=== PATIENT | female | born 2000 | race Caucasian/White ===

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

== ENCOUNTER 2021-08-24 17:55 | Emergency (ER) | payer BC ==
[2021-08-24 18:04] VITALS: BP 113/80; PULSE 83; RESP 20; TEMP 98.7
[2021-08-24] MEDS ORDERED: ONDANSETRON 4 MG/2 ML VIAL IVP STA ×2 (20:26→22:29)
[2021-08-24] MEDS ORDERED: SODIUM CHLORIDE 0.9% 2,000 ML IV STA (20:26)
[2021-08-24] MEDS ORDERED: FAMOTIDINE 20 MG/2 ML VIAL IV STA (20:28)
--- NOTE | 2021-08-24 20:29 | ED ---
General Adult HPI - General Chief complaint: Nausea/Vomiting/Diarrhea Stated complaint: Nausea/Vomiting/12 wks preg Time Seen by Provider: 08/24/21 20:17 Source: patient, RN notes reviewed Mode of arrival: ambulatory Limitations: no limitations - History of Present Illness Initial comments: Patient is a pleasant 21-year-old female presenting to the emergency Department with nausea vomiting. Patient is 12 weeks gravid. Symptoms been present most worse the last 2 days. Patient is vomiting more than 5 or 6 times last couple of days. No abdominal or pelvic pain. No vaginal bleeding. No constipation or diarrhea. - Related Data Previous Rx's Medication Instructions Recorded Sulfamethox-Tmp 800-160Mg [Bactrim 1 each PO Q12HR #14 tab 10/15/18 DS 800-160 mg] Ondansetron Odt [Zofran Odt] 4 mg PO Q8HR PRN #10 tab 04/04/19 Allergies Allergy/AdvReac Type Severity Reaction Status Date / Time No Known Allergies Allergy Verified 08/24/21 18:04 Review of Systems ROS Statement: Those systems with pertinent positive or pertinent negative responses have been documented in the HPI. ROS Other: All systems not noted in ROS Statement are negative. Constitutional: Denies: fever Eyes: Denies: eye pain ENT: Denies: ear pain Respiratory: Denies: cough Cardiovascular: Denies: chest pain Endocrine: Denies: fatigue Gastrointestinal: Reports: nausea, vomiting. Denies: abdominal pain, diarrhea Genitourinary: Denies: dysuria Musculoskeletal: Denies: back pain Skin: Denies: rash Neurological: Denies: weakness Past Medical History Past Medical History: No Reported History Additional Past Medical History / Comment(s): Frequent UTI's History of Any Multi-Drug Resistant Organisms: None Reported Past Surgical History: No Surgical Hx Reported Past Psychological History: No Psychological Hx Reported Smoking Status: Never smoker Past Alcohol Use History: None Reported Past Drug Use History: None Reported General Exam Limitations: no limitations General appearance: alert, in no apparent distress Head exam: Present: normocephalic Eye exam: Present: normal appearance Neck exam: Present: normal inspection Respiratory exam: Present: normal lung sounds bilaterally Cardiovascular Exam: Present: regular rate, normal rhythm GI/Abdominal exam: Present: soft. Absent: distended, tenderness, guarding, rebound, rigid Extremities exam: Present: normal inspection Neurological exam: Present: alert Psychiatric exam: Present: normal affect, normal mood Skin exam: Present: normal color Course Vital Signs 08/24/21 18:02 Temperature 98.7 F Pulse Rate 83 Respiratory 20 Rate Blood Pressure 113/80 O2 Sat by Pulse 99 Oximetry Medical Decision Making - Medical Decision Making Patient reevaluated and resting comfortably in bed. Patient is much better. Patient updated on results and need for follow-up. - Lab Data Result diagrams: 08/24/21 20:56 08/24/21 20:56 Lab Results 08/24/21 08/24/21 08/24/21 Range/Units 20:56 20:56 20:56 WBC 19.2 H (4.0-11.0) k/uL RBC 4.54 (3.80-5.40) m/uL Hgb 13.6 (11.4-16.0) gm/dL Hct 40.3 (34.0-46.0) % MCV 88.8 (80.0-100.0) fL MCH 30.0 (25.0-35.0) pg MCHC 33.8 (31.0-37.0) g/dL RDW 14.2 (11.5-15.5) % Plt Count 287 (150-450) k/uL MPV 7.7 Neutrophils % 91 % Lymphocytes % 6 % Monocytes % 2 % Eosinophils % 1 % Basophils % 0 % Neutrophils # 17.4 H (1.3-7.7) k/uL Lymphocytes # 1.1 (1.0-4.8) k/uL Monocytes # 0.5 (0-1.0) k/uL Eosinophils # 0.2 (0-0.7) k/uL Basophils # 0.0 (0-0.2) k/uL Sodium 138 (137-145) mmol/L Potassium 3.2 L (3.5-5.1) mmol/L Chloride 97 L (98-107) mmol/L Carbon Dioxide 27 (22-30) mmol/L Anion Gap 14 mmol/L BUN 7 (7-17) mg/dL Creatinine 0.35 L (0.52-1.04) mg/dL Est GFR (CKD-EPI)AfAm >90 (>60 ml/min/1.73 sqM) Est GFR (CKD-EPI)NonAf >90 (>60 ml/min/1.73 sqM) Glucose 129 H (74-99) mg/dL Calcium 10.2 (8.4-10.2) mg/dL Total Bilirubin 0.6 (0.2-1.3) mg/dL AST 19 (14-36) U/L ALT 14 (4-34) U/L Alkaline Phosphatase 56 (38-126) U/L Total Protein 8.4 H (6.3-8.2) g/dL Albumin 4.8 (3.5-5.0) g/dL Amylase 71 (30-110) U/L Lipase 50 (23-300) U/L HCG, Quant 29860.9 mIU/mL Urine Color Yellow Urine Appearance Cloudy H (Clear) Urine pH 6.0 (5.0-8.0) Ur Specific [place] 1.033 (1.001-1.035) Urine Protein 2+ H (Negative) Urine Glucose (UA) Trace H (Negative) Urine Ketones 4+ H (Negative) Urine Blood Negative (Negative) Urine Nitrite Negative (Negative) Urine Bilirubin Negative (Negative) Urine Urobilinogen 3.0 (<2.0) mg/dL Ur Leukocyte Esterase Small H (Negative) Urine RBC 3 (0-5) /hpf Urine WBC 6 H (0-5) /hpf Ur Squamous Epith Cells 6 H (0-4) /hpf Urine Bacteria Occasional H (None) /hpf Hyaline Casts 3 H (0-2) /lpf Urine Mucus Many H (None) /hpf Disposition Clinical Impression: Hyperemesis gravidarum Disposition: HOME SELF-CARE Condition: Stable Instructions (If sedation given, give patient instructions): Acute Nausea and Vomiting (ED) Additional Instructions: Please do follow-up with your [employer] in the next day or 2 for recheck. Return for uncontrolled vomiting, fever, pain, bleeding, worsening or change in symptoms or other concerns. Is patient prescribed a controlled substance at d/c from ED?: No Referrals: Savana Walsh MD [STAFF PHYSICIAN] - 1-2 days Time of Disposition: 22:04
[2021-08-24 21:06] LABS: Basophils % (A) 0 %; Eosinophils # (A) 0.2 k/uL (0-0.7); Eosinophils % (A) 1 %; HCT 40.3 % (34.0-46.0); HGB 13.6 gm/dL (11.4-16.0); Lymphocytes # (A) 1.1 k/uL (1.0-4.8); Lymphocytes % (A) 6 %; MCHC 33.8 g/dL (31.0-37.0); MCV 88.8 fL (80.0-100.0); Mean Platelet Volume 7.7; Monocytes # (A) 0.5 k/uL (0-1.0); Monocytes % (A) 2 %; Neutrophils # (A) 17.4 k/uL (1.3-7.7); Neutrophils % (A) 91 %; Platelet Count 287 k/uL (150-450); RBC 4.54 m/uL (3.80-5.40); RDW 14.2 % (11.5-15.5); WBC 19.2 k/uL (4.0-11.0)
[2021-08-24 21:11] LABS: Appearance,Urine Cloudy (Clear); Bacteria,Urine Occasional /hpf; Bilirubin,Urine Negative (Negative); Blood,Urine Negative (Negative); Color,Urine Yellow; Glucose,Urine (UA) Trace (Negative); Hyaline Casts,Urine 3 /lpf (0-2); Ketones,Urine 4+ (Negative); Leukocyte Esterase,Urine Small (Negative); Mucus,Urine Many /hpf; Nitrite,Urine Negative (Negative); Protein,Urine 2+ (Negative); RBC,Urine 3 /hpf (0-5); Specific Gravity,Urine 1.033 (1.001-1.035); Squamous Epithelial Cell,Urine 6 /hpf (0-4); WBC,Urine 6 /hpf (0-5)
[2021-08-24 21:15] LABS: ALT 14 U/L (4-34); AST 19 U/L (14-36); African American GFR (CKD) >90 (>60 ml/min/1.73 sqM); Albumin 4.8 g/dL (3.5-5.0); Alkaline Phosphatase 56 U/L (38-126); Amylase 71 U/L (30-110); Anion Gap 14 mmol/L; Blood Urea Nitrogen 7 mg/dL (7-17); Calcium 10.2 mg/dL (8.4-10.2); Carbon Dioxide 27 mmol/L (22-30); Chloride 97 mmol/L (98-107); Glucose 129 mg/dL (74-99); Lipase 50 U/L (23-300); Non-African American GFR(CKD) >90 (>60 ml/min/1.73 sqM); Potassium 3.2 mmol/L (3.5-5.1); Sodium 138 mmol/L (137-145); Total Bilirubin 0.6 mg/dL (0.2-1.3); Total Protein 8.4 g/dL (6.3-8.2)
[2021-08-24 21:31] LABS: HCG,Quantitative Serum 14035.9 mIU/mL
[2021-08-24] MEDS ORDERED: POTASSIUM CHLORIDE ER 20 MEQ TAB.ER PO STA (22:04)
[2021-08-24] MEDS ORDERED: ONDANSETRON 4 MG ODT STARTER PACK 2 TAB BTL PO STA (22:28)
== END 2021-08-24 22:42 | disposition home or self-care (01) ==
LOC: EC 17:55
DX: O21.0 Mild hyperemesis gravidarum (principal); Z3A.12 12 weeks gestation of pregnancy
CPT/HCPCS: 36415; 80053; 82150; 83690; 85025; 81001; 84702; 96374; 96375; 96361; 99284; J2405; S0119

== ENCOUNTER 2021-12-10 17:23 | Outpatient (CLI) | payer BC ==
--- NOTE | 2021-12-10 20:20 | US ---
EXAMINATION TYPE: US OB limited DATE OF EXAM: 12/10/2021 COMPARISON: NONE CLINICAL HISTORY: 29 weeks, ? srom, cramping. Patient states she has been leaking since last night. EXAM PERFORMED: Transabdominal (TA) GARRY only per ordering physician GESTATIONAL AGE / DATING Physician Established: (28 weeks/6 days) EDC: 05/22/21 No growth performed on today?s study per ordering physician SURVEY GARRY: 16.3 cm Normal Ultrasound evidence of premature rupture of membranes? No HEART RATE: 143 bpm RHYTHM: Normal IMPRESSION: No acute process.
[2021-12-10 20:55] VITALS: BP 111/58; PULSE 83; RESP 16; TEMP 97.3
--- NOTE | 2021-12-11 08:34 | P.MSEPDOC ---
Presenting Problems - Arrival Data Date of Arrival on Unit: 12/10/21 Time of Arrival on Unit: 20:45 Mode of Transport: Wheelchair - Complaint OB-Reason for Admission/Chief Complaint: Rule Out PROM Comment: possible leaking since last night Medical History - Information : 1 Para: 0 Term: 0 : 0 Abortions: Spontaneous or Elective: 0 Number of Living Children: 0 - Gestational Age Gestational Age by URIAH (wks/days): 28 Weeks and 6 Days - History Comment: 2VC Review of Systems - Review of Systems Constitutional: No problems Breast: No problems ENT: No problems Cardiovascular: No problems Respiratory: No problems Gastrointestinal: No problems Genitourinary: No problems Musculoskeletal: Muscle weakness Neurological: No problems Skin: No problems Comment: pt has guillian barre syndrome, 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 Vital Signs - Temperature Temperature: 97.3 F Temperature Source: Temporal Artery Scan - Pulse Right Pulse Rate: 83 Pulse Assessment Method: Pulse Oximetry - Respirations Respiratory Rate: 16 - Blood Pressure Right Arm Blood Pressure: 111/58 Blood Pressure Mean: 75 Blood Pressure Source: Automatic Cuff Medical Screen Scoring - Assessment - Baby A Baseline FHR: 140 Heart Rate - NICHD Category: Category I (Normal) NST: Reactive Physician Notification - Physician Notified Physician Notified Date: 12/10/21 Physician Notified Time: 20:31 Physician: Veronica Martinez Order Received: Yes - Notification Comment Comment: reported on u/s GARRY of 16, pt no longer c/o any leaking since being here. feeling well. orders to d/c home with instructions and education, keep scheduled appt in office Maternal Triage Index - Maternal Triage Index Presenting for scheduled procedure w/no complaint: No - Stat/Priority 1 Stat Priority 1: No - Urgent/Priority 2 Urgent Priority 2: Yes Provider Notified: chacho Provider Notified Time: 20:31 Criteria Met for Priority 2: >29 weeks, r/o PROM. amnisure negative x2 per previous shift. GARRY 16 - Prompt/Priority 3 Prompt Priority 3: No - Non-Urgent/Priority 4 Non-Urgent Priority 4: No Disposition - Disposition OB Disposition: Discharge to home, Written follow up instructions reviewed Discharge Date: 12/10/21 Discharge Time: 20:45 I agree with the RN Medical Screening Exam: Yes Case reviewed; plan agreed upon as documented in EMR&OBIX.: Yes Diagnosis: Rule out rupture of membranes
== END 2021-12-10 20:45 | disposition home or self-care (01) ==
LOC: FBPOP 17:23
PROVIDERS: ATTEND Obstetrics & Gynecology
DX: O26.893 Other specified pregnancy related conditions, third trimester (principal); Z3A.38 38 weeks gestation of pregnancy
CPT/HCPCS: 59025; 76815; 99213

== ENCOUNTER 2022-02-20 20:30 | Inpatient (IN) | payer BC, OTHER ==
[2022-02-20] MEDS ORDERED: TERBUTALINE 1 MG/ML VIAL SQ PRN (22:05)
[2022-02-20] MEDS ORDERED: OXYTOCIN 10 UNIT/ML 1 ML VIAL IM PRN (22:05)
[2022-02-20] MEDS ORDERED: CARBOPROST TROMETHAMINE 250 MCG/ML 1 ML AMP IM PRN (22:05)
[2022-02-20] MEDS ORDERED: METHYLERGONOVINE 0.2 MG/ML 1 ML AMP IM PRN (22:05)
[2022-02-20] MEDS ORDERED: LIDOCAINE 0.5% (PF) 5 MG/ML (50 ML SDV) SQ PRN (22:05)
[2022-02-20] MEDS ORDERED: OXYTOCIN 30 UNITS/500 ML NS 30 UNIT in SALINE 1 500ML.BAG IV SCH (22:15)
[2022-02-20 22:28] LABS: Basophils # (A) 0.2 k/uL (0-0.2); Basophils % (A) 1 %; Eosinophils # (A) 0.1 k/uL (0-0.7); Eosinophils % (A) 1 %; HGB 13.4 gm/dL (11.4-16.0); Lymphocytes # (A) 2.2 k/uL (1.0-4.8); Lymphocytes % (A) 11 %; MCHC 33.5 g/dL (31.0-37.0); MCV 83.6 fL (80.0-100.0); Mean Platelet Volume 8.6; Monocytes # (A) 0.9 k/uL (0-1.0); Monocytes % (A) 4 %; Neutrophils # (A) 16.3 k/uL (1.3-7.7); Neutrophils % (A) 82 %; Platelet Count 274 k/uL (150-450); RBC 4.78 m/uL (3.80-5.40); RDW 13.5 % (11.5-15.5); WBC 19.8 k/uL (4.0-11.0)
[2022-02-20] MEDS: LACTATED RINGERS 1,000 ML IV SCH (22:28)
[2022-02-21] MEDS: LACTATED RINGERS 1,000 ML IV SCH ×2 (04:12→10:32)
[2022-02-21] MEDS ORDERED: BUTORPHANOL 1 MG/ML 1 ML VIAL IV PRN (05:00)
[2022-02-21] MEDS ORDERED: ONDANSETRON 4 MG/2 ML VIAL IVP STA (07:33)
[2022-02-21] MEDS ORDERED: AMPICILLIN 2,000 MG in SODIUM CHLORIDE 0.9% 100 ML IVPB STA (07:34)
--- NOTE | 2022-02-21 10:06 | P.HPOB ---
History of Present Illness H&P Date: 02/21/22 Chief Complaint: IUP at 39 1/7 weeks, spontaneous rupture membranes This is a 21-year-old at 39 and one sevenths weeks that presents with complaints of spontaneous rupture of membranes around 1900. Patient was noted to be grossly ruptured in triage. Patient was noted to be 1 cm dilated at that time. 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 Patient has subsequent sequelae of lower extremity weakness and she does walk with a walker. Patient was seen by MFM given her diagnosis of Guillain-Short, no complications were expected secondary to the diagnosis. Patient did see hematology given her history of DVT which they felt was secondary to the Guillain-Short, and immobility, she was on L request when she found out she was and quickly switched to Lovenox 40 mg daily. Recommendation to continue this until 4 weeks . Patient does have a [place] filter in place. Patient in addition did see neurology during the with recommendations for continued outpatient physical therapy /occupational therapy. They recommended follow-up after delivery. Patient was a transfer of care from [facility] at 14 weeks. On bloodwork this patient is a blood type of B+, rubella status immune, hep B surface antigen negative, RPR nonreactive, HIV negative. Past medical history Guillain-Short, DVT Patient's past surgical history significant for a tracheostomy placed during the time of the Guillain-Short diagnosis, Guido filter Review of Systems Constitutional: Reports fatigue, Denies chills, Denies fever Ears, nose, mouth and throat: Denies headache Cardiovascular: Denies leg edema Respiratory: Denies dyspnea Gastrointestinal: Reports nausea, Reports vomiting Genitourinary: Reports Musculoskeletal: Reports leg numbness/tingling Past Medical History Past Medical History: No Reported History Additional Past Medical History / Comment(s): Frequent UTI's, Guillaine Kingsbury Syndrome 2020 History of Any Multi-Drug Resistant Organisms: None Reported Past Surgical History: No Surgical Hx Reported Additional Past Surgical History / Comment(s): Patient had a trach and nasogastric feeding tube with GBS in 2020 spent months in the ICU. Past Anesthesia/Blood Transfusion Reactions: No Reported Reaction Past Psychological History: No Psychological Hx Reported Smoking Status: Never smoker Past Alcohol Use History: None Reported Past Drug Use History: None Reported - Past Family History Mother Family Medical History: Hypertension Medications and Allergies Home Medications Medication Instructions Recorded Confirmed Type Vit No.179/Iron/Folic 1 tab PO DAILY 12/10/21 02/20/22 History [ Tablet] Heparin Sodium,Porcine [Heparin 5,000 ml SQ BID 02/20/22 02/20/22 History Sodium] Allergies Allergy/AdvReac Type Severity Reaction Status Date / Time No Known Allergies Allergy Verified 02/20/22 21:38 Exam Osteopathic Statement: *. No significant issues noted on an osteopathic structural exam other than those noted in the History and Physical/Consult. 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 Breathing appears nonlabored, on cervical exam she is 3/80/-2 station we'll scalp electrode is placed at this time as a means to monitor the baby throughout labor. Difficulty secondary to multiple position changes in her discomfort level. heart tones returned be category 1 and she is contr acting every 3 minutes Results Result Diagrams: 02/20/22 22:17 Abnormal Lab Results - Last 24 Hours (Table) 02/20/22 Range/Units 22:17 WBC 19.8 H (4.0-11.0) k/uL Neutrophils # 16.3 H (1.3-7.7) k/uL Assessment and Plan (1) Term Current Visit: Yes Status: Acute Code(s): Z34.90 - ENCNTR FOR SUPRVSN OF NORMAL , UNSP, UNSP TRIMESTER SNOMED Code(s): 36649985 (2) SROM (spontaneous rupture of membranes) Current Visit: Yes Status: Acute Code(s): HZV2988 - SNOMED Code(s): 965934316 (3) Guillain-Kingsbury Current Visit: Yes Status: Acute Code(s): G61.0 - GUILLAIN-BARRE SYNDROME SNOMED Code(s): 38117012 Plan: 21-year-old at 39 and one sevenths weeks that presents with complaints of spontaneous rupture of membranes around 1900 on 02/20. Patient has a known diagnosis of Guillain-Short 2020. Patient had a lengthy hospital stay with subsequent DVT and [place] filter placement. Patient is seen maternal medicine neurology in hematology. All notes were reviewed. Anesthesia did decline epidural placement secondary to prior history of Guillain-Short. Discussed nitrous for pain control.
[2022-02-21] MEDS: AMPICILLIN 1,000 MG in SODIUM CHLORIDE 0.9% 50 ML IVPB SCH ×2 (11:55→21:01)
[2022-02-21] MEDS ORDERED: BENZOCAINE/MENTHOL SPRAY 1 GM/SPRAY AEROSOL TOPICAL PRN (12:35)
[2022-02-21] MEDS ORDERED: SIMETHICONE 80 MG CHEWABLE PO PRN (12:35)
[2022-02-21] MEDS ORDERED: diphenhydrAMINE 25 MG CAP PO PRN (12:35)
[2022-02-21] MEDS ORDERED: diphenhydrAMINE 50 MG CAP PO PRN (12:35)
[2022-02-21] MEDS ORDERED: diphenhydrAMINE 50 MG/ML 1 ML VIAL IVP PRN ×2 (12:35)
[2022-02-21] MEDS ORDERED: HYDROCORTISONE 2.5% RECTAL CREAM 30 GM TUBE RECTAL PRN (12:35)
[2022-02-21] MEDS ORDERED: ZOLPIDEM 5 MG TAB PO PRN (12:35)
[2022-02-21] MEDS ORDERED: LANOLIN CREAM 5 GM TUBE TOPICAL PRN (12:35)
[2022-02-21] MEDS ORDERED: OXYTOCIN 30 UNITS/500 ML NS 30 UNIT in SALINE 1 500ML.BAG IV SCH (12:45)
--- NOTE | 2022-02-21 12:47 | P.PROBDLV ---
Vaginal Delivery Note - . Vaginal Delivery Note: Findings: viable female delivered at 1213, weight of 6 lbs. 10 oz., Apgars of 8 and 9 at one and 5 minutes respectively. Patient was admitted to labor and delivery last evening with complaints of spontaneous rupture of membranes around 1900. Patient notes fluid to be clear in nature. Patient had minimal contractions to the night therefore Pitocin augmentation of labor was begun. Patient was unable to get an epidural when requested secondary to a diagnosis of Guillain-Short syndrome approximately 1 year ago. Patient was offered nitrous which she happily complied with. Patient progressed through labor eventually becoming uncomfortable. Patient was noted to be complete and placed in a modified lithotomy position. With excellent maternal effort the infant was brought down to a presentation. With additional pushes the head followed by the anterior/posterior shoulder and body were delivered and placed on the maternal abdomen. A loose nuchal cord was delivered through. A spontaneous cry was noted at . After two-minute de layed the umbilical cord was doubly clamped and cut. The placenta was delivered spontaneously intact with a two-vessel cord being appreciated. A single umbilical artery was diagnosed on 20 week anatomy ultrasound. Brisk bleeding was appreciated therefore the bladder was drained for approximately 150 mL of clear yellow urine. Uterus was noted to be firm following and bleeding slowed. Inspection the patient's vaginal vault a first- degree right vaginal laceration was appreciated. This was instilled with lidocaine and repaired with 3-0 repeat in usual fashion. Small amount of bleeding was noted on the mucosal edge therefore silver nitrate was used to obtain hemostasis. On further inspection hemostasis was appreciated. All counts were noted correct 2 at the nose delivery. Patient and infant tolerated delivery well and are resting comfortably. Patient was previously on heparin subcu prior to delivery, will restart Lovenox 8 hours after delivery.
[2022-02-21] MEDS: IBUPROFEN 600 MG TAB PO SCH ×2 (13:53→21:01)
[2022-02-21] MEDS: SENNOSIDES-DOCUSATE SODIUM 1 EACH TAB PO SCH (21:01)
[2022-02-21] MEDS: ENOXAPARIN 40 MG/0.4 ML SYRINGE SQ SCH (21:03)
[2022-02-22] MEDS: IBUPROFEN 600 MG TAB PO SCH ×4 (02:18→20:19)
[2022-02-22] MEDS: LACTATED RINGERS 1,000 ML IV SCH (02:18)
[2022-02-22] MEDS: AMPICILLIN 1,000 MG in SODIUM CHLORIDE 0.9% 50 ML IVPB SCH (02:18)
[2022-02-22 04:46] VITALS: RESP 16
--- NOTE | 2022-02-22 05:30 | P.PNOBGVD ---
Subjective - Subjective Principal diagnosis: day #1 Interval history: Patient is doing well day #1. She is noting increasing GERD symptoms, some nausea and vomiting. She notes her lochia to be moderate. She is bottle feeding. She states her pain is well-controlled. She is tolerating a regular diet. Patient reports: Reports appetite normal, Reports voiding normally, Reports pain well controlled [place]: doing well, bottle feeding Objective - Latest Vital Signs Latest vital signs: Vital Signs Temp Pulse Resp BP 02/22/22 04:00 97.6 F 56 L 16 130/68 02/22/22 00:00 98.3 F 68 44 H 130/66 02/21/22 20:00 98.2 F 68 18 125/78 02/21/22 17:03 99.7 F H 103 H 16 134/94 02/21/22 14:36 113 H 16 133/75 02/21/22 14:06 104 H 16 127/84 02/21/22 13:36 112 H 16 124/61 02/21/22 13:21 114 H 16 138/76 02/21/22 13:06 98.1 F 114 H 16 133/78 02/21/22 12:51 112 H 16 130/74 02/21/22 12:36 99 16 131/79 Intake and Output 02/21/22 02/21/22 02/22/22 14:59 22:59 06:59 Output Total 175 300 Balance -175 -300 Output: Urine 300 Output, Quantitative 175 Blood Loss Other: # Voids 1 1 3 - Exam Extremities: Present: normal, edema Abdomen: Present: normal appearance, soft Uterus: Present: normal, firm Assessment and Plan (1) Term Current Visit: Yes Status: Acute Code(s): Z34.90 - ENCNTR FOR SUPRVSN OF NORMAL , UNSP, UNSP TRIMESTER SNOMED Code(s): 66297804 (2) SROM (spontaneous rupture of membranes) Current Visit: Yes Status: Acute Code(s): FDA3209 - SNOMED Code(s): 842020287 (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 She is noting increasing GERD symptoms we'll treat with omeprazole. Continue routine care today, discharge tomorrow.
[2022-02-22] MEDS: FAMOTIDINE 20 MG TAB PO SCH ×2 (06:20→20:20)
[2022-02-22] MEDS: SENNOSIDES-DOCUSATE SODIUM 1 EACH TAB PO SCH ×2 (07:55→20:20)
[2022-02-22] MEDS: PRENATAL VIT-IRON-FOLIC ACID 1 EACH TABLET PO SCH (07:57)
[2022-02-22] MEDS ORDERED: FAMOTIDINE 20 MG/2 ML VIAL IV SCH (09:00)
[2022-02-22] MEDS: ACETAMINOPHEN TAB 325 MG TAB PO PRN (12:10)
[2022-02-22] MEDS: ENOXAPARIN 40 MG/0.4 ML SYRINGE SQ SCH (20:20)
[2022-02-23] MEDS: ACETAMINOPHEN TAB 325 MG TAB PO PRN ×2 (00:56→08:30)
[2022-02-23] MEDS: IBUPROFEN 600 MG TAB PO SCH ×2 (00:57→14:36)
[2022-02-23] MEDS: SENNOSIDES-DOCUSATE SODIUM 1 EACH TAB PO SCH (08:30)
[2022-02-23] MEDS: FAMOTIDINE 20 MG TAB PO SCH (08:31)
--- NOTE | 2022-02-23 10:33 | P.PNOBGVD ---
Subjective - Subjective Principal diagnosis: , normal spontaneous vaginal delivery Interval history: Ms. Burgess is a 21 y/o day 2 from [facility] 05/27 SROM 1. Meeting all milestones appropriately. She has no complaints. Lochia slightly heavier than menses at this time. She is ambulating, voiding, eating without nausea/vomiting. 2. Viable female at the bedside, doing well. 3. contraception discussed - recommend 6 weeks of pelvic rest for recovery. Discussed importance of avoiding short interval <12 months. Recommend progesterone-only contraception for the patient given history of provoked DVT. Will further discuss at appointment in 6 weeks. Patient reports: Reports appetite normal, Reports voiding normally, Reports pain well controlled, Reports ambulating normally [place]: doing well, nursing well Objective - Latest Vital Signs Latest vital signs: Vital Signs Temp Pulse Resp BP Pulse Ox 02/23/22 08:20 98.1 F 56 L 16 114/75 02/23/22 00:00 97.8 F 62 16 116/74 98 02/22/22 20:00 97.9 F 73 16 115/79 99 02/22/22 16:00 72 16 116/73 02/22/22 12:00 98.2 F 82 16 118/81
[2022-02-23 12:51] VITALS: BP 118/78; PULSE 73; TEMP 98.8
[2022-02-23] MEDS: PRENATAL VIT-IRON-FOLIC ACID 1 EACH TABLET PO SCH (12:58)
== END 2022-02-23 15:00 | disposition home or self-care (01) | DRG 806 ==
LOC: FBPOP 20:30 → 4FBP 20:56
PROVIDERS: ADMIT Obstetrics & Gynecology Obstetrics; ATTEND Obstetrics & Gynecology
PROC: 10E0XZZ Delivery of Products of Conception, External Approach (ICD-10-PCS; principal; 2022-02-21)
PROC: 0HQ9XZZ Repair Perineum Skin, External Approach (ICD-10-PCS; 2022-02-21)
PROC: 3E033VJ Introduction of Other Hormone into Peripheral Vein, Percutaneous Approach (ICD-10-PCS; 2022-02-21)
PROC: 4A0HXCZ Measurement of Products of Conception, Cardiac Rate, External Approach (ICD-10-PCS; 2022-02-21)
DX: O42.02 Full-term premature rupture of membranes, onset of labor within 24 hours of rupture (principal); G61.0 Guillain-Barre syndrome; Z37.0 Single live birth; O99.354 Diseases of the nervous system complicating childbirth; O69.81X0 Labor and delivery complicated by cord around neck, without compression, not applicable or unspecified; O69.89X0 Labor and delivery complicated by other cord complications, not applicable or unspecified; O70.0 First degree perineal laceration during delivery; Z3A.39 39 weeks gestation of pregnancy; Z87.440 Personal history of urinary (tract) infections; Z86.718 Personal history of other venous thrombosis and embolism; Z95.828 Presence of other vascular implants and grafts
CPT/HCPCS: 85025; 86850; 86900; 86901

== ENCOUNTER 2023-09-25 07:44 | Emergency (ER) | payer BC, OTHER ==
--- NOTE | 2023-09-25 08:21 | ED ---
Female Urogenital HPI - General Chief complaint: Urogenital Stated complaint: Abd pain Time Seen by Provider: 09/25/23 08:05 Source: patient, RN notes reviewed Mode of arrival: ambulatory Limitations: no limitations - History of Present Illness Initial comments: This is a 23-year-old female who presents to the emergency department for urinary symptoms. Patient states that for the last 2 to 3 days she has had suprapubic pain/pressure and burning with urination. She has a history of UTIs and thought that she could get this to go away by drinking water, however symptoms continued to persist. Denies any pain in the back, fevers, or chills. - Related Data Home Medications Medication Instructions Recorded Confirmed Vit No.179/Iron/Folic 1 tab PO DAILY 12/10/21 02/20/22 [ Tablet] Heparin Sodium,Porcine (1 ml) 5,000 ml SQ BID 02/20/22 02/20/22 [Heparin Sodium] Previous Rx's Medication Instructions Recorded Acetaminophen Tab [Tylenol] 650 mg PO Q6H PRN #30 tab 02/23/22 Docusate [Colace] 100 mg PO BID PRN #100 capsule 02/23/22 Ibuprofen 800 mg PO Q8H PRN #30 tab 02/23/22 Phenazopyridine [Pyridium] 200 mg PO TID PRN #9 tablet 09/25/23 Sulfamethox-Tmp 800-160Mg [Bactrim 1 tab PO Q12HR 7 Days #14 tab 09/25/23 DS 800-160 mg] Allergies Allergy/AdvReac Type Severity Reaction Status Date / Time No Known Allergies Allergy Verified 09/25/23 08:04 Review of Systems ROS Statement: Those systems with pertinent positive or pertinent negative responses have been documented in the HPI. ROS Other: All systems not noted in ROS Statement are negative. 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 Past Anesthesia/Blood Transfusion Reactions: No Reported Reaction Past Psychological History: No Psychological Hx Reported Smoking Status: Never smoker Past Alcohol Use History: None Reported Past Drug Use History: None Reported - Past Family History Mother Family Medical History: Hypertension General Exam Limitations: no limitations General appearance: alert, in no apparent distress Head exam: Present: atraumatic, normocephalic, normal inspection Respiratory exam: Present: normal lung sounds bilaterally. Absent: respiratory distress, wheezes, rales, rhonchi, stridor Cardiovascular Exam: Present: regular rate, normal rhythm, normal heart sounds. Absent: systolic murmur, diastolic murmur, rubs, gallop, clicks GI/Abdominal exam: Present: soft, normal bowel sounds. Absent: distended, tenderness, guarding, rebound, rigid Back exam: Absent: CVA tenderness (R), CVA tenderness (L) Neurological exam: Present: alert, oriented X3, CN II-XII intact Psychiatric exam: Present: normal affect, normal mood Skin exam: Present: warm, dry, intact, normal color. Absent: rash Course Vital Signs 09/25/23 09/25/23 08:02 09:22 Temperature 98.0 F 98 F Pulse Rate 80 80 Respiratory 18 18 Rate Blood Pressure 122/80 118/79 O2 Sat by Pulse 98 98 Oximetry Medical Decision Making - Medical Decision Making This is a 23 year old female who presents to the emergency department for urinary symptoms. Was pt. sent in by a medical professional or institution? @ -No Did you speak to anyone other than the patient for history? @ -No Did you review nursing and triage notes? @ -Yes, and I agree, it is accurate with regards to the patient's symptoms. Were old charts reviewed? @ -No Differential Diagnosis? @ -Differential Urinary Symptoms: UTI, STI, pyelonephritis, ureteral calculus, this is not meant to be an all- inclusive list. EKG interpreted by me (3pts min.)? @ -Not obtained X-rays interpreted by me (1pt min.)? @ -Not obtained CT interpreted by me (1pt min.)? @ -Not obtained U/S interpreted by me (1pt. min.)? @ -Not obtained What testing was considered but not performed? (CT, X-rays, U/S, labs)? Why? @ -None What meds were considered but not given? Why? @ -IM Ceftriaxone for UTI, however patient declined. Did you discuss the management of the patient with other professionals? @ -No Did you reconcile home meds? @ -No Was smoking cessation discussed for >3mins.? @ -No Was critical care preformed (if so, how long)? @ -No Were there social determinants of health that impacted care today? How? (Homelessness, low income, unemployed, alcoholism, drug addiction, transportation, low edu. Level, literacy, decrease access to med. care, senior living, rehab)? @ -No Was there de-escalation of care discussed even if they declined? (Discuss DNR or withdrawal of care, Hospice)? @ -No What co-morbidities impacted this encounter? (DM, HTN, Smoking, COPD, CAD, Cancer, CVA, Hep., AIDS, mental health diagnosis, sleep apnea, morbid obesity)? @ -None Was patient admitted / discharged? @ -Discharged. Urinalysis consistent with infection. Urine sent for culture. I did advise a dose of ceftriaxone in the emergency department, however patient declined. Prescription for Bactrim and Pyridium provided with dosing instructions reviewed. Otherwise advised follow-up with her primary care provider. Undiagnosed new problem with uncertain prognosis? @ -None Drug Therapy requiring intensive monitoring for toxicity (Heparin, Nitro, Insulin, Cardizem)? @ -None Were any procedures done? @ -None Diagnosis/symptom? @ -UTI Acute, or Chronic, or Acute on Chronic? @ -Acute Uncomplicated (without systemic symptoms) or Complicated (systemic symptoms)? @ -Uncomplicated Side effects of treatment? @ -None Exacerbation, Progression, or Severe Exacerbation] @ -Not applicable Poses a threat to life or bodily function? @ -No Return precautions reviewed in depth, the patient is instructed to return to the emergency department with any new, worsening, or concerning symptoms. Patient verbalized understanding. This case was discussed in detail with the attending ED physician, Dr. Singletary. Presentation, findings, and treatment plan discussed in detail as well. - Lab Data Lab Results 09/25/23 09/25/23 Range/Units 08:24 08:24 Urine Color Light Yellow Urine Appearance Turbid H (Clear) Urine pH 5.5 (5.0-8.0) Ur Specific [place] 1.020 (1.001-1.035) Urine Protein Trace H (Negative) Urine Glucose (UA) Negative (Negative) Urine Ketones Negative (Negative) Urine Blood Small H (Negative) Urine Nitrite Negative (Negative) Urine Bilirubin Negative (Negative) Urine Urobilinogen <2.0 (<2.0) mg/dL Ur Leukocyte Esterase Large H (Negative) Urine RBC 24 H (0-5) /hpf Urine WBC >182 H (0-5) /hpf Urine WBC Clumps Few H (None) /hpf Ur Squamous Epith Cells 9 H (0-4) /hpf Urine Bacteria Rare H (None) /hpf Urine HCG, Qual Not Detected (Not Detectd) Disposition Clinical Impression: Urinary tract infection Disposition: HOME SELF-CARE Instructions (If sedation given, give patient instructions): Urinary Tract Infection in Women (ED) Additional Instructions: Return to the emergency department with any new, worsening, or concerning symptoms. Take the antibiotic as prescribed for 7 days. Take the Pyridium up to 3 times daily as needed for burning with urination. Follow up with your primary care provider in 1-2 days. Prescriptions: Sulfamethox-Tmp 800-160Mg [Bactrim DS 800-160 mg] 1 tab PO Q12HR 7 Days #14 tab Phenazopyridine [Pyridium] 200 mg PO TID PRN #9 tablet PRN Reason: Pain Is patient prescribed a controlled substance at d/c from ED?: No Referrals: None,Stated [Primary Care Provider] - 1-2 days Time of Disposition: 08:58
[2023-09-25 08:40] LABS: Appearance,Urine Turbid (Clear); Bacteria,Urine Rare /hpf; Bilirubin,Urine Negative (Negative); Blood,Urine Small (Negative); Color,Urine Light Yellow; Glucose,Urine (UA) Negative (Negative); Ketones,Urine Negative (Negative); Leukocyte Esterase,Urine Large (Negative); Nitrite,Urine Negative (Negative); PH, Urine 5.5 (5.0-8.0); Protein,Urine Trace (Negative); RBC,Urine 24 /hpf (0-5); Squamous Epithelial Cell,Urine 9 /hpf (0-4); Urobilinogen,Urine <2.0 mg/dL (<2.0); WBC,Urine >182 /hpf (0-5)
[2023-09-25 09:21] VITALS: PULSE 80; RESP 18
[2023-09-25 10:08] VITALS: BP 118/79; TEMP 98
== END 2023-09-25 09:24 | disposition home or self-care (01) ==
LOC: EC 07:44
DX: N39.0 Urinary tract infection, site not specified (principal)
CPT/HCPCS: 81001; 81025; 87086; 99284

== ENCOUNTER 2024-11-16 07:28 | Emergency (ER) | payer BC, OTHER ==
[2024-11-16 07:32] VITALS: TEMP 97.9
--- NOTE | 2024-11-16 07:56 | ED ---
General Adult HPI - General Chief complaint: Nausea/Vomiting/Diarrhea Stated complaint: 6 wks preg, vomiting Time Seen by Provider: 11/16/24 07:33 Source: patient, RN notes reviewed Mode of arrival: ambulatory Limitations: no limitations - History of Present Illness Initial comments: Patient is a 24-year-old female present to the emergency department with nausea and vomiting. Onset of symptoms was 3 days ago. Patient has vomited multiple times. Patient still has nausea. Patient is G2, P1. Patient had similar episodes with previous . Patient does have an appointment next week with MANUFACTURING MANAGER however they were unable to get her in sooner. Patient is approximately 6 weeks gravid. No pelvic pain. No vaginal bleeding. - Related Data Home Medications Medication Instructions Recorded Confirmed Vit No.179/Iron/Folic 1 tab PO DAILY 12/10/21 02/20/22 [ Tablet] Heparin Sodium,Porcine (1 ml) 5,000 ml SQ BID 02/20/22 02/20/22 [Heparin Sodium] Previous Rx's Medication Instructions Recorded Acetaminophen Tab [Tylenol] 650 mg PO Q6H PRN #30 tab 02/23/22 Docusate [Colace] 100 mg PO BID PRN #100 capsule 02/23/22 Ibuprofen 800 mg PO Q8H PRN #30 tab 02/23/22 Phenazopyridine [Pyridium] 200 mg PO TID PRN #9 tablet 09/25/23 Sulfamethox-Tmp 800-160Mg [Bactrim 1 tab PO Q12HR 7 Days #14 tab 09/25/23 DS 800-160 mg] Metoclopramide HCl [Reglan] 10 mg PO Q6HR PRN #15 tablet 11/16/24 Allergies Allergy/AdvReac Type Severity Reaction Status Date / Time sulfamethoxazole Allergy Rash/Hives Verified 11/16/24 07:32 [From Bactrim] trimethoprim [From Bactrim] Allergy Rash/Hives Verified 11/16/24 07:32 Review of Systems ROS Statement: Those systems with pertinent positive or pertinent negative responses have been documented in the HPI. ROS Other: All systems not noted in ROS Statement are negative. Constitutional: Denies: fever Eyes: Denies: eye pain ENT: Denies: ear pain Respiratory: Denies: dyspnea Cardiovascular: Denies: chest pain Gastrointestinal: Reports: nausea, vomiting. 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 Past Anesthesia/Blood Transfusion Reactions: No Reported Reaction Past Psychological History: No Psychological Hx Reported Smoking Status: Former smoker, Vaper Past Alcohol Use History: None Reported Past Drug Use History: None Reported - Past Family History Mother Family Medical History: Hypertension General Exam Limitations: no limitations General appearance: alert, in no apparent distress Head exam: Present: normocephalic Eye exam: Present: normal appearance Neck exam: Present: normal inspection Respiratory exam: Present: normal lung sounds bilaterally Cardiovascular Exam: Present: regular rate, normal rhythm GI/Abdominal exam: Present: soft. Absent: tenderness, pulsatile mass Extremities exam: Present: normal inspection Neurological exam: Present: alert Psychiatric exam: Present: normal affect, normal mood Skin exam: Present: normal color Course Vital Signs 11/16/24 11/16/24 07:30 09:00 Temperature 97.9 F Pulse Rate 66 90 Respiratory 20 18 Rate Blood Pressure 134/88 131/82 O2 Sat by Pulse 99 98 Oximetry Medical Decision Making - Medical Decision Making Was pt. sent in by a medical professional or institution (MADEL[facility] [place], REPATCHER, urgent care, hospital, or detention...) When possible be specific @ -No Did you speak to anyone other than the patient for history (EMS, parent, family, police, friend...)? What history was obtained from this source @ -No Did you review nursing and triage notes (agree or disagree)? Why? @ -I reviewed and agree with nursing and triage notes Were old charts reviewed (outside hosp., previous admission, EMS record, old EKG, old radiological studies, urgent care reports/EKG's, detention records)? Report findings @ -No old charts were reviewed Differential Diagnosis (chest pain, altered mental status, abdominal pain women, abdominal pain men, vaginal bleeding, weakness, fever, dyspnea, syncope, headache, dizziness, GI bleed, back pain, seizure, CVA, palpatations, mental health, musculoskeletal)? @ -Differential Abdominal Pain Women: Appendicitis, Cholecystitis, diverticulosis, ischemic bowel, pancreatitis, hepatitis, UTI, gastroenteritis, AAA, incarcerated hernia, bowel obstruction, constipation, inflammatory bowel, hepatitis, peptic ulcer disease, splenic infarction, perforated viscus, vulvitis, ovarian torsion, PID, kidney stone, pl acenta abruption, this is not meant to be an all-inclusive list EKG interpreted by me (3pts min.). @ -As above X-rays interpreted by me (1pt min.). @ -None done CT interpreted by me (1pt min.). @ -None done U/S interpreted by me (1pt. min.). @ -None done What testing was considered but not performed or refused? (CT, X-rays, U/S, labs)? Why? @ -None What meds were considered but not given or refused? Why? @ -None Did you discuss the management of the patient with other professionals (eladio guo i.e. , PA, REPATCHER, lab, RT, psych nurse, social services designee, operations examiner, teacher, nuclear medicine officer, corrections caseworker)? Give summary @ -No Was smoking cessation discussed for >3mins.? @ -No Was critical care preformed (if so, how long)? @ -No Were there social determinants of health that impacted care today? How? (Homelessness, low income, unemployed, alcoholism, drug addiction, transportation, low edu. Level, literacy, decrease access to med. care, [facility], rehab)? @ -No Was there de-escalation of care discussed even if they declined (Discuss DNR or withdrawal of care, Hospice)? DNR status @ -No What co-morbidities impacted this encounter? (DM, HTN, Smoking, COPD, CAD, Cancer, CVA, ARF, Chemo, Hep., AIDS, mental health diagnosis, sleep apnea, morbid obesity)? @ -Gravid Was patient admitted / discharged? Hospital course, mention meds given and route, prescriptions, significant lab abnormalities, going to OR and other pertinent info. @ -Patient presents with nausea and vomiting. After her IV fluids and several doses of medication patient is feeling better. Patient is updated Undiagnosed new problem with uncertain prognosis? @ -No Drug Therapy requiring intensive monitoring for toxicity (Heparin, Nitro, Insulin, Cardizem)? @ -No Were any procedures done? @ -No Diagnosis/symptom? @ -Hyperemesis gravidarum Acute, or Chronic, or Acute on Chronic? @ -Acute Uncomplicated (without systemic symptoms) or Complicated (systemic symptoms)? @ -Default Side effects of treatment? @ -No Exacerbation, Progression, or Severe Exacerbation? @ -No Poses a threat to life or bodily function? How? (Chest pain, [place], [place], pneumonia, PE, COPD, DKA, ARF, appy, cholecystitis, CVA, Diverticulitis, Homicidal, Suicidal, threat to staff... and all critical care pts) @ -No - Lab Data Result diagrams: 11/16/24 07:59 11/16/24 07:59 Lab Results 11/16/24 11/16/24 11/16/24 Range/Units 07:59 07:59 07:59 WBC 16.13 H (4.50-10.00) 10*3/uL RBC 4.86 (4.10-5.20) 10*6/uL Hgb 14.0 (12.0-15.0) g/dL Hct 41.3 (37.2-46.3) % MCV 85.0 (80.0-97.0) fL MCH 28.8 (27.0-32.0) pg MCHC 33.9 (32.0-37.0) g/dL Plt Count 309 (140-440) 10*3/uL MPV 11.1 (9.5-12.2) fL Immature Gran % (Auto) 0.9 % Neutrophils % 77.3 % Lymphocytes % 16.5 % Monocytes % 4.7 % Eosinophils % 0.2 % Basophils % 0.4 % Immature Gran # 0.14 H (0.00-0.04) 10*3/uL Neutrophils # 12.47 H (1.80-7.70) 10*3/uL Lymphocytes # 2.66 (0.90-5.00) 10*3/uL Monocytes # 0.76 (0.20-1.00) 10*3/uL Eosinophils # 0.04 (0.04-0.35) 10*3/uL Basophils # 0.06 (0.00-0.10) 10*3/uL PT 10.9 (10.0-12.5) sec INR 1.0 (<1.2) APTT 24.7 (22.0-30.0) sec Sodium 139 (137-145) mmol/L Potassium 3.9 (3.5-5.1) mmol/L Chloride 103 (98-107) mmol/L Carbon Dioxide 22 (22-30) mmol/L Anion Gap 14 mmol/L BUN 4 L (7-17) mg/dL Creatinine 0.51 L (0.52-1.04) mg/dL Est GFR (CKD-EPI)AfAm >90 (>60 ml/min/1.73 sqM) Est GFR (CKD-EPI)NonAf >90 (>60 ml/min/1.73 sqM) Glucose 125 H (74-99) mg/dL Calcium 9.7 (8.4-10.2) mg/dL Total Bilirubin 0.5 (0.2-1.3) mg/dL AST 26 (14-36) U/L ALT 24 (4-34) U/L Alkaline Phosphatase 82 (38-126) U/L Total Protein 8.1 (6.3-8.2) g/dL Albumin 4.9 (3.5-5.0) g/dL Amylase 71 (30-110) U/L Lipase 146 (23-300) U/L HCG, Quant 45079.9 mIU/mL Disposition Clinical Impression: Hyperemesis gravidarum Disposition: HOME SELF-CARE Condition: Stable Instructions (If sedation given, give patient instructions): Hyperemesis Gravidarum (ED) Additional Instructions: Prescription sent to pharmacy. Please follow-up with your MANUFACTURING MANAGER in the next couple of days for recheck. Return for not tolerating fluids, worsening or changing symptoms or other concerns. Prescriptions: Metoclopramide HCl [Reglan] 10 mg PO Q6HR PRN #15 tablet PRN Reason: Nausea Is patient prescribed a controlled substance at d/c from ED?: No Referrals: None,Stated [Primary Care Provider] - 1-2 days Beny Cai MD [STAFF PHYSICIAN] - 1-2 days Time of Disposition: 11:05
[2024-11-16 08:09] LABS: Basophils # (A) 0.06 10*3/uL (0.00-0.10); Basophils % (A) 0.4 %; Eosinophils # (A) 0.04 10*3/uL (0.04-0.35); Eosinophils % (A) 0.2 %; HCT 41.3 % (37.2-46.3); HGB 14.0 g/dL (12.0-15.0); Lymphocytes # (A) 2.66 10*3/uL (0.90-5.00); Lymphocytes % (A) 16.5 %; MCH 28.8 pg (27.0-32.0); MCHC 33.9 g/dL (32.0-37.0); MCV 85.0 fL (80.0-97.0); Monocytes # (A) 0.76 10*3/uL (0.20-1.00); Monocytes % (A) 4.7 %; Neutrophils # (A) 12.47 10*3/uL (1.80-7.70); Neutrophils % (A) 77.3 %; Platelet Count 309 10*3/uL (140-440); RBC 4.86 10*6/uL (4.10-5.20); RDW 13.0 % (11.5-14.5); WBC 16.13 10*3/uL (4.50-10.00)
[2024-11-16] MEDS: FAMOTIDINE 20 MG/2 ML VIAL IV STA (08:22)
[2024-11-16] MEDS: ONDANSETRON 4 MG/2 ML VIAL IVP STA ×2 (08:22→09:23)
[2024-11-16 08:24] LABS: ALT 24 U/L (4-34); AST 26 U/L (14-36); African American GFR (CKD) >90 (>60 ml/min/1.73 sqM); Albumin 4.9 g/dL (3.5-5.0); Alkaline Phosphatase 82 U/L (38-126); Amylase 71 U/L (30-110); Anion Gap 14 mmol/L; Blood Urea Nitrogen 4 mg/dL (7-17); Calcium 9.7 mg/dL (8.4-10.2); Carbon Dioxide 22 mmol/L (22-30); Chloride 103 mmol/L (98-107); Glucose 125 mg/dL (74-99); Lipase 146 U/L (23-300); Non-African American GFR(CKD) >90 (>60 ml/min/1.73 sqM); Potassium 3.9 mmol/L (3.5-5.1); Sodium 139 mmol/L (137-145); Total Protein 8.1 g/dL (6.3-8.2)
[2024-11-16] MEDS: SODIUM CHLORIDE 0.9% 1,000 ML IV SCH (08:26)
[2024-11-16 08:36] LABS: INR 1.0 (<1.2); Partial Thromboplastin Time 24.7 sec (22.0-30.0); Prothrombin Time 10.9 sec (10.0-12.5)
[2024-11-16 09:17] LABS: HCG,Quantitative Serum 26330.9 mIU/mL
[2024-11-16 09:29] VITALS: BP 131/82; PULSE 90; RESP 18
[2024-11-16] MEDS: METOCLOPRAMIDE 5 MG/ML 2 ML VIAL IVP STA (10:20)
== END 2024-11-16 11:23 | disposition home or self-care (01) ==
LOC: EC 07:28
DX: O21.0 Mild hyperemesis gravidarum (principal); O99.331 Smoking (tobacco) complicating pregnancy, first trimester; F17.290 Nicotine dependence, other tobacco product, uncomplicated; Z88.2 Allergy status to sulfonamides; Z88.1 Allergy status to other antibiotic agents; Z3A.01 Less than 8 weeks gestation of pregnancy
CPT/HCPCS: 36415; 80053; 82150; 83690; 85025; 85610; 85730; 84702; 99284; 96374; 96375 ×2; 96376; 96361; J2765; J2405; J1308